=== PATIENT | female | born 1950 | race Caucasian/White ===

== ENCOUNTER → 2020-07-06 | Outpatient (CLI) | payer BC, MEDICARE ==
--- NOTE | 2020-07-07 08:59 | MM ---
Reason for exam: screening (asymptomatic). Last mammogram was performed 6 years and 6 months ago. History: Patient is postmenopausal and is nulliparous. 2 cyst aspirations of the left breast. Physical Findings: A clinical breast exam by your physician is recommended on an annual basis and results should be correlated with mammographic findings. MG 3D Screening Mammo W/Cad Bilateral CC, MLO, and XCCL view(s) were taken. Prior study comparison: January 07, 2014, bilateral digital screening mammo w/CAD. October 17, 2010, bilateral digital screening mammogram. The breast tissue is heterogeneously dense. This may lower the sensitivity of mammography. There is chronic nodularity in the left breast. Loose regional calcifications on the right are new. No suspicious cluster of microcalcifications. ASSESSMENT: Benign, BI-RAD 2 RECOMMENDATION: Routine screening mammogram of both breasts in 1 year.
== END | disposition home or self-care (01) ==
LOC: RADMAMWWP 07:00
PROVIDERS: ATTEND Family Medicine
DX: Z12.31 Encounter for screening mammogram for malignant neoplasm of breast (principal)
CPT/HCPCS: 77063; 77067

== ENCOUNTER → 2022-01-30 | Outpatient (CLI) | payer BC, MEDICARE ==
--- NOTE | 2022-01-30 13:21 | CT ---
EXAMINATION TYPE: CT abdomen pelvis wo con DATE OF EXAM: 01/30/2022 COMPARISON: No previous CT scan is available for comparison HISTORY: abdominal pain, diarrhea CT DLP: 1047 mGycm Automated exposure control for dose reduction was used. TECHNIQUE: Helical acquisition of images was performed from the lung bases through the pelvis. No IV contrast administration. FINDINGS: LUNG BASES: No significant abnormality is appreciated. LIVER/GB: 13 mm right hepatic lobe medial subcapsular hypodensity, possibly representing a hepatic cy st. For further elective ultrasound confirmation. No other definite hepatic focal lesion by this none nhanced CT scan. Previous cholecystectomy. PANCREAS: No significant abnormality is seen. SPLEEN: No significant abnormality is seen. ADRENALS: No significant abnormality is seen. KIDNEYS: Left renal pelvis fat stranding, nonspecific. Multiple variable sized bilateral renal cysts without suspicious feature measuring up to 3.2 cm at the upper pole of the left kidney and 3.2 cm at the anterior aspect of the right kidney. Questionable 3 mm hemorrhagic cyst at the upper pole of the right kidney. Marginally calcified cyst is seen at the lower pole of the left kidney measuring up to 4.2 cm. Further elective ultrasound assessment can be considered. No hydroureter or hydronephrosis. FREE AIR: No free air is visualized RETROPERITONEAL ADENOPATHY: None visualized REPRODUCTIVE ORGANS: Previous hysterectomy. No gross adnexal mass. URINARY BLADDER: No significant abnormality is seen. PELVIC ADENOPATHY: None visualized. OSSEOUS STRUCTURES: Severe bilateral L5-S1 facet osteoarthropathy. No aggressive bone lesion. BOWEL: Unremarkable stomach, duodenum and small bowel. Suspected adhesions between the vaginal vault and the sigmoid colon. Colonic diverticulosis most evident involving the sigmoid colon and descendin g colon without evidence of acute diverticulitis. Wall thickening of the sigmoid colon, please correl ate with colonoscopy results. Fatty infiltration of the ascending colon and cecum which could be rela nayan to chronic colitis. Moderate to marked fecal loading of the colon suggestive of constipation. OTHER: Arterial atherosclerotic calcifications. No sizable ascites. IMPRESSION: 1. Colonic diverticulosis without evidence of acute diverticulitis. No convincing evidence of acute c olitis. Possible chronic colitis of the ascending colon and cecum as described above. Possible adhesi ons between the sigmoid colon and the vaginal vault. 2. No acute small bowel abnormality or signs of bowel obstruction. 3. Fat stranding in the left renal pelvis, underlying acute inflammatory/infectious process of the le ft kidney cannot be excluded, please correlate clinically and with urinalysis results. Other incident al findings as detailed above.
== END | disposition home or self-care (01) ==
LOC: RADCTMAIN 12:30
PROVIDERS: ATTEND Family Medicine
DX: K57.30 Diverticulosis of large intestine without perforation or abscess without bleeding (principal); N28.89 Other specified disorders of kidney and ureter
CPT/HCPCS: 74176

== ENCOUNTER → 2022-05-21 | Outpatient (CLI) | payer BC, MEDICARE ==
--- NOTE | 2022-05-22 05:16 | US ---
EXAMINATION TYPE: US kidneys/renal and bladder DATE OF EXAM: 05/21/2022 COMPARISON: 01/30/2022 CLINICAL HISTORY: 71-year-old female N18.32 CKD STAGE 3. History of renal cysts. EXAM MEASUREMENTS: Right Kidney: 10.9 x 5.7 x 5.6 cm Left Kidney: 11.1 x 5.9 x 5.1 cm Multimedia Authoring Specialist notes: Limited due to gas and body habitus. Right Kidney: Cortex appears thin. Multiple anechoic areas seen. - Mildly complex area seen anteriorly at mid: 3.4 x 3.3 x 2.2 cm. This has slightly irregular margins but no internal soft tissue component noted. - Hypoechoic area seen medially at mid: 3.6 x 3.1 x 2.7 cm. Low level internal echoes could be artifa ct or debris. Posterior through transmission is noted. Left Kidney: Cortex appears thin. Anechoic areas seen, largest at lower pole: 3.2 x 2.9 x 2.8 cm. - Isoechoic-slightly hypoechoic area seen lower: 2.6 x 2.5 x 2.1 cm. - 5 mm echogenic lower pole focus likely small calculus. No hydronephrosis on either side. Bladder: Appears anechoic. Bilateral Jets seen: Yes Indistinct hypoechoic areas seen anterior to bilateral kidneys, likely trace perinephric edema. IMPRESSION: 1. Numerous bilateral renal cortical cysts and a backdrop of chronic kidney disease. 2. A 2.6 cm lesion at the left kidney lower pole is indeterminate between isoechoic to slightly hypoe choic. Both a debris-filled cyst and solid mass are possibilities at this time. Recommend 3-6 month f ollow-up CT or ultrasound to reassess. 3. A slightly irregular 3.4 cm probable cyst at the right kidney midpole is also noted and can be heather ssessed at follow-up. 4. Incidental 5 mm nonobstructive left renal calculus.
== END | disposition home or self-care (01) ==
LOC: RADUSWWP 14:04
PROVIDERS: ATTEND Internal Medicine Nephrology
DX: N18.32 Chronic kidney disease, stage 3b (principal); N28.1 Cyst of kidney, acquired
CPT/HCPCS: 76770

== ENCOUNTER 2023-02-18 08:15 | Day surgery (SDC) | payer BC, MEDICARE ==
[2023-02-14 14:37] VITALS: BMI 42.0
[~2023-02-18 08:15] MED LIST: LACTATED RINGERS 1,000 ML IV SCH
[2023-02-18 08:40] VITALS: TEMP 97.2
[2023-02-18 08:50] LABS: Glucose,Whole Blood 111 mg/dL (70-110)
[2023-02-18] MEDS ORDERED: PROPOFOL 10 MG/ML 20 ML VIAL IV ONE (09:14)
[2023-02-18] MEDS ORDERED: LIDOCAINE 2% INJ 20 MG/ML (2 ML VIAL) ONE (09:14)
--- NOTE | 2023-02-18 09:29 | P.PCN ---
Date of Procedure: 02/18/23 Procedure(s) Performed: BRIEF HISTORY: Patient is a 72-year-old, pleasant, white female scheduled for an upper endoscopy as a part of evaluation of epigastric pain for the last 3-4 months duration. She is presently on omeprazole 20 mg daily as well as Carafate 1 g 4 times daily and symptoms are gradually improving. She is scheduled for an upper endoscopy to rule out peptic ulcer disease.. PROCEDURE PERFORMED: Esophagogastroduodenoscopy with biopsy. PREOPERATIVE DIAGNOSIS: Chronic epigastric pain of 2 months duration. IV sedation per anesthesia. PROCEDURE: After informed consent was obtained, the patient was brought into the endoscopy unit. IV sedation was administered by Anesthesia under continuous monitoring. Initially the Olympus GIF-140 video endoscope was inserted into the mouth. Esophagus intubated without any difficulty. It was gradually advanced into the stomach and duodenum and carefully examined. The bulb of the duodenum appeared normal. The second part of the duodenum there was a 5-6 mm slightly raised erythematous area suspicious for a polyp which was biopsied. The scope at this time was withdrawn to the stomach, adequately insufflated with air, and upon careful examination, mucosa of the antrum, had diffuse erythema consistent with gastritis and biopsies were done from this area. Mucosa of the body, cardia and the fundus appeared normal. The scope was then withdrawn into the esophagus. The GE junction was located at 39 cm from the incisors. The esophagus appeared normal. There were no erosions or ulcerations seen and the patient tolerated the procedure well. IMPRESSION: 1. Antral diffuse gastritis. 2..5-6 mm slightly raised erythematous area in the second part of the duodenum is post biopsy. RECOMMENDATIONS: The findings of this examination were discussed with the patient as well as her family. Follow-up biopsy results She was advised to continue with omeprazole milligrams twice daily as well as Carafate as needed and follow antireflux measures..
[2023-02-18 09:47] LABS: Glucose,Whole Blood 113 mg/dL (70-110)
[2023-02-18 10:01] VITALS: BP 150/82; PULSE 71; RESP 18
== END 2023-02-18 10:12 | disposition home or self-care (01) ==
LOC: ORWHC2ENDO 08:15
PROVIDERS: ATTEND Internal Medicine Gastroenterology
DX: K29.50 Unspecified chronic gastritis without bleeding (principal); I10 Essential (primary) hypertension; E78.5 Hyperlipidemia, unspecified; G47.33 Obstructive sleep apnea (adult) (pediatric); E66.01 Morbid (severe) obesity due to excess calories; E03.9 Hypothyroidism, unspecified; K21.9 Gastro-esophageal reflux disease without esophagitis; M19.90 Unspecified osteoarthritis, unspecified site; Z99.89 Dependence on other enabling machines and devices; Z79.899 Other long term (current) drug therapy; Z79.890 Hormone replacement therapy; Z68.41 Body mass index [BMI] 40.0-44.9, adult; Z88.8 Allergy status to other drugs, medicaments and biological substances; Z91.048 Other nonmedicinal substance allergy status; Z79.4 Long term (current) use of insulin; Z90.49 Acquired absence of other specified parts of digestive tract; Z90.89 Acquired absence of other organs; Z98.890 Other specified postprocedural states
CPT/HCPCS: 43239; J2704; J2001; 88305

== ENCOUNTER → 2023-03-04 | Outpatient (CLI) | payer BC, MEDICARE ==
--- NOTE | 2023-03-04 20:53 | US ---
EXAMINATION TYPE: US kidneys/renal and bladder DATE OF EXAM: 03/04/2023 COMPARISON: US 2021, CT 2021 CLINICAL HISTORY: D41.02 RENAL MASS. Left renal mass. EXAM MEASUREMENTS: Right Kidney: 10.5 x 5.7 x 4.9 cm Left Kidney: 11.6 x 5.7 x 5.8 cm Right Kidney: Slightly complex area seen mid pole: 2.3 x 2.2 x 2.2 cm. Multiple anechoic areas seen, largest is at lower pole: 3.5 x 3.3 x 2.5 cm Left Kidney: Multiple anechoic areas seen, largest seen lower pole measures 3.0 cm in greatest dimens ion. Complex/septated area seen lower pole: 4.1 x 3.9 x 3.3 cm. Bladder: wnl Bilateral Jets seen: Yes IMPRESSION: 1. No evidence of obstructive uropathy. 2. Bilateral renal cysts. Some of these renal cysts are slightly complex. These can be completely ev aluated with CT or MRI renal mass protocol if clinically warranted.
== END | disposition home or self-care (01) ==
LOC: RADUSWWP 15:33
PROVIDERS: ATTEND Urology
DX: D41.02 Neoplasm of uncertain behavior of left kidney (principal); N28.1 Cyst of kidney, acquired
CPT/HCPCS: 76770

== ENCOUNTER → 2023-12-10 | Outpatient (CLI) | payer BC, MEDICARE ==
[2023-12-10 15:20] LABS: ALT 24 U/L (8-44); AST 21 U/L (13-35); Albumin 4.2 g/dL (3.8-4.9); Alkaline Phosphatase 104 U/L (41-126); BUN/Creat Ratio 16.73 Ratio (12.00-20.00); Blood Urea Nitrogen 18.4 mg/dL (9.0-27.0); Calcium 10.3 mg/dL (8.7-10.3); Carbon Dioxide 21.9 mmol/L (21.6-31.8); Chloride 108 mmol/L (96-109); Chol/HDL Ratio 4.04 Ratio; Creatine Kinase 65 U/L (26-186); Glucose 123 mg/dL (70-110); LDL Cholesterol,Calculated 127.4 mg/dL (0.0-131.0); Potassium 4.9 mmol/L (3.5-5.5); Sodium 142 mmol/L (135-145); T4, Free (Free Thyroxine) 1.75 ng/dL (0.80-1.80); Total Bilirubin 0.3 mg/dL (0.3-1.2); Total Protein 6.2 g/dL (6.2-8.2)
[2023-12-10 15:36] LABS: Basophils # (A) 0.05 X 10*3/uL (0.00-0.10); Basophils % (A) 0.7 %; Eosinophils # (A) 0.13 X 10*3/uL (0.04-0.35); Eosinophils % (A) 1.9 %; HCT 42.5 % (37.2-46.3); HGB 13.5 g/dL (12.0-15.0); Lymphocytes # (A) 1.41 X 10*3/uL (0.90-5.00); Lymphocytes % (A) 20.5 %; MCH 29.5 pg (27.0-32.0); MCHC 31.8 g/dL (32.0-37.0); Mean Platelet Volume 10.6 FL (9.5-12.2); Monocytes # (A) 0.39 X 10*3/uL (0.20-1.00); Monocytes % (A) 5.7 %; NRBC Per 100 WBC 0 X 10*3/uL (0.00-0.01); Neutrophils # (A) 4.84 X 10*3/uL (1.80-7.70); Neutrophils % (A) 70.5 %; Platelet Count 242 X 10*3/uL (140-440); RBC 4.57 X 10*6/uL (4.10-5.20); RDW 14.3 % (11.5-14.5); WBC 6.87 X 10*3/uL (4.50-10.00)
--- NOTE | 2023-12-11 20:18 | MM ---
Reason for Exam: Screening (asymptomatic). Last mammogram was performed 3 year(s) and 5 month(s) ago. Patient History: Menarche at age 16. Patient has no children. Left ovary removed at age 63. Right ovary removed at age 63. Hysterectomy at age 63. Postmenopausal. Cyst Aspiration on the Left side. Cyst Aspiration on the Left side. Risk Values: Tiffany 5 year model risk: 1.8%. NCI Lifetime model risk: 4.4%. Prior Study Comparison: 10/17/2010 Bilateral Screening Mammogram, [facility]. 01/07/2014 Bilateral Screening Mammogram, [facility]. 07/06/2020 Bilateral Screening Mammogram, [facility]. Tissue Density: The breast tissue is heterogeneously dense. This may lower the sensitivity of mammography. Findings: Analyzed By CAD. Chronic nodularity in the left breast. Unchanged areas of bilateral asymmetric density. There is no suspicious group of microcalcifications or new suspicious mass in either breast. Overall Assessment: Benign, BI-RAD 2 Management: Screening Mammogram of both breasts in 1 year. . Patient should continue monthly self-breast exams. A clinical breast exam by your physician is recommended on an annual basis. This exam should not preclude additional follow-up of suspicious palpable abnormalities. Note on Tiffany scores and lifetime risk: 1. A Tiffany score greater than 3% is considered moderate risk. If this is the case, consider specialist referral to assess eligibility for a risk reducing agent. 2. If overall lifetime risk for the development of breast cancer is 20% or higher, the patient may qualify for future screening with alternating mammogram and breast MRI. Electronically signed and approved by: Jose Lopez M.D. Radiologist
== END | disposition home or self-care (01) ==
LOC: RADMAMWWP 09:44
PROVIDERS: ATTEND Family Medicine
DX: Z12.31 Encounter for screening mammogram for malignant neoplasm of breast (principal); E78.5 Hyperlipidemia, unspecified; E03.9 Hypothyroidism, unspecified; Z78.0 Asymptomatic menopausal state
CPT/HCPCS: 77063; 77067; 80053; 80061; 82550; 84439; 84443; 85025

== ENCOUNTER → 2023-12-17 | Outpatient (CLI) | payer BC, MEDICARE ==
[2023-12-17 13:09] LABS: ALT 26 U/L (4-34); AST 26 U/L (14-36); African American GFR (CKD) 55 (>60 ml/min/1.73 sqM); Albumin 3.8 g/dL (3.5-5.0); Albumin/Globulin Ratio 1.6; Alkaline Phosphatase 110 U/L (38-126); Anion Gap 5 mmol/L; Blood Urea Nitrogen 26 mg/dL (7-17); Carbon Dioxide 24 mmol/L (22-30); Chloride 110 mmol/L (98-107); Globulin 2.4 g/dL; Glucose 126 mg/dL (74-99); Non-African American GFR(CKD) 47 (>60 ml/min/1.73 sqM); Potassium 5.1 mmol/L (3.5-5.1); Sodium 139 mmol/L (137-145); Total Bilirubin 0.4 mg/dL (0.2-1.3); Total Protein 6.2 g/dL (6.3-8.2)
--- NOTE | 2023-12-17 14:28 | CT ---
CTA CHEST EXAMINATION TYPE: CT angio chest DATE OF EXAM: 12/17/2023 INDICATION: abn xray of aorta CT DLP: 724 mGycm, Automated exposure control for dose reduction was used. CONTRAST: Patient injected with 100 mL of Isovue 370. COMPARISON: None TECHNIQUE: CT of the chest is performed on a spiral scan at 2 mm thick sections. Study is performed with intravenous contrast timed for evaluation for thoracic aorta. This will limit additional portio ns of the evaluation. 3-D MIP images reconstructed by the technologist are reviewed on the computer in the coronal and sagittal planes. FINDINGS: There is a normal 3 vessel arch. No mediastinal or hilar adenopathy enlarged by CT criteria is evident. The ascending aorta diameter at the level of the main pulmonary artery is 3.1 cm. The main pulmonary artery diameter at the bifur cation is 2.7 cm. Lung windows are clear. Limited CT section through the upper abdomen. IMPRESSION: 1. No aneurysmal dilatation of the thoracic aorta
== END | disposition home or self-care (01) ==
LOC: RADCTMAIN 11:47
PROVIDERS: ATTEND Family Medicine
DX: J98.59 Other diseases of mediastinum, not elsewhere classified (principal); E78.5 Hyperlipidemia, unspecified
CPT/HCPCS: 80053; 71275; 36415; Q9967